=== PATIENT | female | born 1980 | race Caucasian/White ===

== ENCOUNTER 2017-08-28 11:45 | Emergency (ER) | payer OTHER ==
[~2017-08-28] VITALS: Ht 160 cm; Wt 91.6 kg
[~2017-08-28 11:45] MED LIST: FLOMAX PO; FLOMAX0.4 MG PO; HYDROCODONE-APA1 TA1 PO; NOHOMEMEDICATIONS; NORCO 5-325 TA1 EACH PO; ZOFRAN 4 MG ORAL4 M1 DIS
[2017-08-28 12:27] LABS: ABSOLUTE LYMPHOCYTES 1.1 thou/uL (0.8-5.3); ABSOLUTE MONOCYTES 0.9 thou/uL (0.0-1.2); BASOPHILS 0.3 %; EOSINOPHILS 0.3 %; HEMATOCRIT 37.5 % (37.0-47.0); HEMOGLOBIN 12.4 gm/dL (12.0-15.0); LYMPHOCYTES 11.8 %; MCH 26.8 pg (26.0-34.0); MCHC 33.1 g/dL (28.0-37.0); MONOCYTES 9.6 %; MPV 8.6 fl. (7.2-11.1); NUCLEATED RBCS 0 /100WBC; PLATELET COUNT* 280 thou/uL (150-400); RBC 4.63 mil/uL (4.20-5.00); RDW-CV 13.7 % (10.5-14.5)
[2017-08-28 12:39] LABS: CALCIUM 8.7 mg/dL (8.5-10.1); CREATININE 0.8 mg/dL (0.6-1.3); POTASSIUM 3.2 mmol/L (3.5-5.1)
[2017-08-28 12:44] LABS: URINE BLOOD 3+ (Negative); URINE COLOR YELLOW; URINE GLUCOSE-RANDOM NEGATIVE (Negative); URINE KETONES 1+ (Negative); URINE LEUKOCYTES 1+ (Negative); URINE NITRITE NEGATIVE (Negative); URINE PROTEIN 1+ (Negative); URINE SPECIFIC GRAVITY >= 1.030 (1.005-1.030)
[2017-08-28 12:44] LABS: ALBUMIN 3.4 g/dL (3.4-5.0); TOTAL BILIRUBIN 0.4 mg/dL (<0.1-1.0); TOTAL PROTEIN 7.9 g/dL (6.4-8.2)
[2017-08-28 12:46] LABS: ICTOTEST (BILI CONFIRMATORY) Negative (Negative); URINE BILIRUBIN 1+ (Negative); URINE CLARITY HAZY
[2017-08-28 12:55] LABS: SQUAMOUS >10 Many /LPF (0-3)
[2017-08-28 12:56] LABS: CASTS None Seen /LPF (None Seen); CRYSTALS None Seen /LPF (None Seen); MUCUS 0-3 Light strn/LPF (None Seen); URINE RBC >20 Many /HPF (0-2); URINE WBC 6-15 Few /HPF (0-5)
[2017-08-28] MEDS ORDERED: ZOFRAN ODT4 MG PO (13:27)
[2017-08-28] MEDS ORDERED: BACTRIM DS TAB1 EACH PO (13:27)
[2017-08-28 13:59] VITALS: BP 114/82
== END 2017-08-28 14:00 | disposition home or self-care (01) ==
LOC: M.ERS 11:45
PROVIDERS: Nurse Practitioner Psychiatric/Mental Health
DX: N30.01 Acute cystitis with hematuria (principal); R10.30 Lower abdominal pain, unspecified; R11.0 Nausea; Z88.0 Allergy status to penicillin

== ENCOUNTER 2019-03-05 16:01 | Emergency (ER) | payer OTHER ==
[~2019-03-05] VITALS: Ht 157.5 cm; Wt 93.0 kg
[~2019-03-05 16:01] MED LIST changes: +BACTRIM DS TAB1 EACH PO; +ZOFRAN ODT4 MG PO
[2019-03-05 16:55] LABS: URINE BILIRUBIN NEGATIVE (Negative); URINE BLOOD NEGATIVE (Negative); URINE CLARITY CLEAR; URINE COLOR YELLOW; URINE GLUCOSE-RANDOM NEGATIVE (Negative); URINE KETONES NEGATIVE (Negative); URINE LEUKOCYTES-REFLEX NEGATIVE (Negative); URINE NITRITE-REFLEX NEGATIVE (Negative); URINE PROTEIN NEGATIVE (Negative); URINE SPECIFIC GRAVITY 1.015 (1.005-1.030); URINE UROBILINOGEN 0.2 E.U./dl (0.2-1.0)
[2019-03-05 17:09] LABS: ABSOLUTE BASOPHILS 0.1 thou/uL (0.0-0.2); ABSOLUTE LYMPHOCYTES 0.8 thou/uL (0.8-5.3); ABSOLUTE MONOCYTES 0.3 thou/uL (0.0-1.2); ABSOLUTE NEUTROPHILS 3.7 thou/uL (1.6-8.1); BASOPHILS 1.9 %; EOSINOPHILS 0.6 %; HEMATOCRIT 34.2 % (37.0-47.0); HEMOGLOBIN 11.1 gm/dL (12.0-15.0); LYMPHOCYTES 16.5 %; MCH 25.4 pg (26.0-34.0); MCHC 32.4 g/dL (28.0-37.0); MCV 78.3 fL (80.0-100.0); MONOCYTES 5.8 %; MPV 8.3 fl. (7.2-11.1); NUCLEATED RBCS 0 /100WBC; PLATELET COUNT* 364 thou/uL (150-400); POLYS 75.2 %; RBC 4.37 mil/uL (4.20-5.00); RDW-CV 15.4 % (10.5-14.5); WBC 4.9 thou/uL (4.0-11.0)
[2019-03-05 17:19] LABS: CREATININE 0.7 mg/dL (0.6-1.3)
[2019-03-05 17:24] LABS: ALBUMIN 3.7 g/dL (3.4-5.0); TOTAL BILIRUBIN 0.4 mg/dL (<0.1-1.0); TOTAL PROTEIN 7.9 g/dL (6.4-8.2)
[2019-03-05] MEDS ORDERED: MECLIZINE HCL12.5 MG PO (20:29)
[2019-03-05] MEDS ORDERED: ZOFRAN4 MG PO (20:30)
[2019-03-05 20:46] VITALS: BP 108/69
--- NOTE | 2019-03-06 20:08 | EKG ---
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 : 1980 Requested By: Madhuri Anderson Order Number: [id number] MD: Gal Dash Measurements Intervals [place] Rate: 63 P: 46 NM: 144 QRS: 52 QRSD: 87 T: 45 QT: 406 QTc: 416 Interpretive Statements Sinus rhythm Abnormal R-wave progression, early transition Baseline wander in lead(s) V5,V6 No previous ECG available for comparison Electronically Signed On 03-06-2019 20:08:01 CDT by Gal Dash [email or web address] <ELECTRONICALLY SIGNED> By: Nunu Dash MD, [facility] 03/06/192007 44 Nunu Dash MD, [facility] /EPI
== END 2019-03-05 20:46 | disposition home or self-care (01) ==
LOC: M.ERS 16:01
PROVIDERS: Nurse Practitioner Family
DX: R42 Dizziness and giddiness (principal); Z88.0 Allergy status to penicillin; Z87.442 Personal history of urinary calculi

== ENCOUNTER 2019-06-16 12:57 | Emergency (ER) | payer BC ==
[~2019-06-16] VITALS: Ht 157.5 cm; Wt 94.3 kg
[~2019-06-16 12:57] MED LIST changes: +MECLIZINE HCL12.5 MG PO; +ZOFRAN4 MG PO
[2019-06-16 13:30] LABS: ABSOLUTE BASOPHILS 0.1 thou/uL (0.0-0.2); ABSOLUTE EOSINOPHILS 0.1 thou/uL (0.0-0.7); ABSOLUTE LYMPHOCYTES 1.3 thou/uL (0.8-5.3); ABSOLUTE MONOCYTES 0.6 thou/uL (0.0-1.2); BASOPHILS 0.8 %; EOSINOPHILS 1.1 %; HEMATOCRIT 34.4 % (37.0-47.0); HEMOGLOBIN 11.3 gm/dL (12.0-15.0); MCH 24.9 pg (26.0-34.0); MCHC 32.8 g/dL (28.0-37.0); MCV 75.8 fL (80.0-100.0); MONOCYTES 8.7 %; MPV 9.1 fl. (7.2-11.1); NUCLEATED RBCS 0 /100WBC; PLATELET COUNT* 400 thou/uL (150-400); POLYS 70.4 %; RBC 4.54 mil/uL (4.20-5.00); RDW-CV 14.9 % (10.5-14.5); WBC 7.1 thou/uL (4.0-11.0)
[2019-06-16 13:38] LABS: CALCIUM 8.4 mg/dL (8.5-10.1); CREATININE 0.8 mg/dL (0.6-1.3); POTASSIUM 3.7 mmol/L (3.5-5.1)
[2019-06-16 13:45] LABS: ALBUMIN 3.5 g/dL (3.4-5.0); TOTAL BILIRUBIN 0.2 mg/dL (<0.1-1.0); TOTAL PROTEIN 7.7 g/dL (6.4-8.2)
[2019-06-16 14:10] LABS: URINE BILIRUBIN NEGATIVE (Negative); URINE BLOOD 2+ (Negative); URINE CLARITY CLEAR; URINE COLOR YELLOW; URINE GLUCOSE-RANDOM NEGATIVE (Negative); URINE KETONES NEGATIVE (Negative); URINE LEUKOCYTES-REFLEX NEGATIVE (Negative); URINE NITRITE-REFLEX NEGATIVE (Negative); URINE PROTEIN TRACE (Negative); URINE SPECIFIC GRAVITY 1.025 (1.005-1.030); URINE UROBILINOGEN 0.2 E.U./dl (0.2-1.0)
[2019-06-16] MEDS ORDERED: TYLENOL WITH CO1 TA1 PO (14:52)
[2019-06-16] MEDS ORDERED: ONDANSETRON ODT4 MG PO (14:52)
[2019-06-16 15:08] VITALS: BP 145/80
[2019-06-16 15:14] LABS: AMORPHOUS URATES Many /LPF (None Seen); BACTERIA-REFLEX 1-9 Few /HPF (None Seen); CASTS None Seen /LPF (None Seen); MUCUS 0-3 Light strn/LPF (None Seen); SQUAMOUS 0-3 Few /LPF (0-3); URINE RBC 3-10 Few /HPF (0-2); URINE WBC-REFLEX 0-5 Rare /HPF (0-5)
[2019-06-16 15:25] LABS: CRYSTALS None Seen /LPF (None Seen)
== END 2019-06-16 15:23 | disposition home or self-care (01) ==
LOC: M.ERS 12:57
PROVIDERS: Physician Assistant
DX: R11.2 Nausea with vomiting, unspecified (principal); R19.7 Diarrhea, unspecified; Z88.0 Allergy status to penicillin; Z87.442 Personal history of urinary calculi

== ENCOUNTER 2019-09-07 07:10 | Emergency (ER) | payer OTHER ==
[~2019-09-07] VITALS: Ht 162.6 cm; Wt 91.2 kg
[~2019-09-07 07:10] MED LIST changes: +ONDANSETRON ODT4 MG PO; +TYLENOL WITH CO1 TA1 PO
[2019-09-07 07:29] LABS: INFLUENZA A ANTIGEN Positive (Negative); INFLUENZA B ANTIGEN Negative (Negative)
[2019-09-07] MEDS ORDERED: ZOFRAN ODT4 MG DISSOLVE (07:47)
[2019-09-07] MEDS ORDERED: VENTOLIN HFA 1818 GM INH (07:47)
[2019-09-07] MEDS ORDERED: TAMIFLU75 MG PO (07:47)
[2019-09-07 07:55] VITALS: BP 128/51
== END 2019-09-07 07:55 | disposition home or self-care (01) ==
LOC: M.ERS 07:10
PROVIDERS: Emergency Medicine Emergency Medical Services
DX: J10.1 Influenza due to other identified influenza virus with other respiratory manifestations (principal); Z87.442 Personal history of urinary calculi; Z88.0 Allergy status to penicillin

== ENCOUNTER 2020-01-06 11:19 | Emergency (ER) | payer OTHER ==
[~2020-01-06] VITALS: Ht 157.5 cm; Wt 94.3 kg
[~2020-01-06 11:19] MED LIST changes: +TAMIFLU75 MG PO; +VENTOLIN HFA 1818 GM INH; +ZOFRAN ODT4 MG DISSOLVE
[2020-01-06 12:10] LABS: URINE BILIRUBIN NEGATIVE (Negative); URINE BLOOD 1+ (Negative); URINE CLARITY CLEAR; URINE COLOR YELLOW; URINE GLUCOSE-RANDOM NEGATIVE (Negative); URINE KETONES NEGATIVE (Negative); URINE LEUKOCYTES-REFLEX NEGATIVE (Negative); URINE NITRITE-REFLEX NEGATIVE (Negative); URINE PROTEIN NEGATIVE (Negative); URINE SPECIFIC GRAVITY >= 1.030 (1.005-1.030); URINE UROBILINOGEN 0.2 E.U./dl (0.2-1.0)
[2020-01-06 12:18] LABS: BACTERIA-REFLEX 1-9 Few /HPF (None Seen); CASTS None Seen /LPF (None Seen); CRYSTALS None Seen /LPF (None Seen); MUCUS 4-6 Moderate strn/LPF (None Seen); SQUAMOUS 4-10 Moderate /LPF (0-3); URINE RBC 3-10 Few /HPF (0-2); URINE WBC-REFLEX 0-5 Rare /HPF (0-5)
[2020-01-06 12:32] LABS: ABSOLUTE BASOPHILS 0.1 thou/uL (0.0-0.2); ABSOLUTE EOSINOPHILS 0.1 thou/uL (0.0-0.7); ABSOLUTE LYMPHOCYTES 1.4 thou/uL (0.8-5.3); ABSOLUTE MONOCYTES 0.4 thou/uL (0.0-1.2); ABSOLUTE NEUTROPHILS 3.9 thou/uL (1.6-8.1); BASOPHILS 2.4 %; HEMATOCRIT 33.4 % (37.0-47.0); HEMOGLOBIN 10.7 gm/dL (12.0-15.0); LYMPHOCYTES 23.8 %; MCH 23.5 pg (26.0-34.0); MCV 73.5 fL (80.0-100.0); MONOCYTES 6.1 %; MPV 8.8 fl. (7.2-11.1); NUCLEATED RBCS 0 /100WBC; PLATELET COUNT* 405 thou/uL (150-400); POLYS 66.7 %; RBC 4.55 mil/uL (4.20-5.00); RDW-CV 16.5 % (10.5-14.5); WBC 5.8 thou/uL (4.0-11.0)
[2020-01-06 12:42] LABS: CALCIUM 8.8 mg/dL (8.5-10.1); CREATININE 0.9 mg/dL (0.6-1.3); POTASSIUM 3.8 mmol/L (3.5-5.1)
[2020-01-06 12:46] LABS: ALBUMIN 3.6 g/dL (3.4-5.0); TOTAL BILIRUBIN 0.4 mg/dL (<0.1-1.0); TOTAL PROTEIN 8.3 g/dL (6.4-8.2)
[2020-01-06] MEDS ORDERED: ONDANSETRON HCL4 M2 PO (14:10)
[2020-01-06 14:22] VITALS: BP 118/54
--- NOTE | 2020-01-07 08:59 | EKG ---
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1980 Requested By: Paty Morales Order Number: [id number] MD: Ghulam Zacarias Measurements Intervals [place] Rate: 59 P: 47 [place]: 140 QRS: 59 QRSD: 86 T: 47 QT: 406 QTc: 403 Interpretive Statements Sinus rhythm Compared to ECG 03/05/2019 16:45:52 No significant changes Electronically Signed On 01-07-2020 8:58:19 CDT by Ghulam Zacarias [email or web address] <ELECTRONICALLY SIGNED> By: Ghulam Zacarias MD, [facility] 01/07/20 0858 1213 [facility]3 Ghulam Zacarias MD, [facility] /EPI
== END 2020-01-06 14:23 | disposition home or self-care (01) ==
LOC: M.ERS 11:19
PROVIDERS: Nurse Practitioner Family
DX: R11.2 Nausea with vomiting, unspecified (principal); R19.7 Diarrhea, unspecified; Z87.442 Personal history of urinary calculi; Z88.0 Allergy status to penicillin; Z88.6 Allergy status to analgesic agent

== ENCOUNTER 2020-05-16 20:05 | Emergency (ER) | payer OTHER ==
[~2020-05-16] VITALS: Ht 157.5 cm; Wt 97.5 kg
[~2020-05-16 20:05] MED LIST changes: +ONDANSETRON HCL4 M2 PO
[2020-05-16] MEDS ORDERED: IRON240 M1 PO (20:20)
[2020-05-16 20:47] LABS: URINE BILIRUBIN NEGATIVE (Negative); URINE BLOOD 2+ (Negative); URINE CLARITY CLEAR; URINE COLOR YELLOW; URINE GLUCOSE-RANDOM NEGATIVE (Negative); URINE KETONES NEGATIVE (Negative); URINE LEUKOCYTES-REFLEX NEGATIVE (Negative); URINE NITRITE-REFLEX NEGATIVE (Negative); URINE PROTEIN NEGATIVE (Negative); URINE SPECIFIC GRAVITY >= 1.030 (1.005-1.030); URINE UROBILINOGEN 0.2 E.U./dl (0.2-1.0)
[2020-05-16 21:25] LABS: CASTS None Seen /LPF (None Seen); MUCUS 0-3 Light strn/LPF (None Seen); SQUAMOUS >10 Many /LPF (0-3)
[2020-05-16 21:26] LABS: CRYSTALS None Seen /LPF (None Seen); URINE RBC 3-10 Few /HPF (0-2); URINE WBC-REFLEX 0-5 Rare /HPF (0-5)
[2020-05-16 22:36] LABS: ABSOLUTE BASOPHILS 0.1 thou/uL (0.0-0.2); ABSOLUTE LYMPHOCYTES 1.4 thou/uL (0.8-5.3); ABSOLUTE MONOCYTES 0.5 thou/uL (0.0-1.2); ABSOLUTE NEUTROPHILS 8.3 thou/uL (1.6-8.1); BASOPHILS 0.9 %; EOSINOPHILS 0.3 %; HEMATOCRIT 39.8 % (37.0-47.0); HEMOGLOBIN 13.1 gm/dL (12.0-15.0); LYMPHOCYTES 13.7 %; MCH 26.9 pg (26.0-34.0); MCV 81.7 fL (80.0-100.0); MONOCYTES 5.1 %; MPV 8.6 fl. (7.2-11.1); NUCLEATED RBCS 0 /100WBC; PLATELET COUNT* 361 thou/uL (150-400); RBC 4.87 mil/uL (4.20-5.00); RDW-CV 20.3 % (10.5-14.5); WBC 10.3 thou/uL (4.0-11.0)
[2020-05-16 22:48] LABS: CALCIUM 9.4 mg/dL (8.5-10.1); CREATININE 0.9 mg/dL (0.6-1.3); POTASSIUM 3.9 mmol/L (3.5-5.1)
[2020-05-16 22:59] LABS: ALBUMIN 3.8 g/dL (3.4-5.0); TOTAL BILIRUBIN 0.4 mg/dL (<0.1-1.0); TOTAL PROTEIN 8.2 g/dL (6.4-8.2)
[2020-05-17 00:10] LABS: ANISOCYTOSIS 2+
[2020-05-17 00:11] LABS: LARGE PLATELETS OCCASIONAL; PLATELET ESTIMATE ADEQUATE; POLYCHROMASIA 1+
[2020-05-17] MEDS ORDERED: BENTYL 20 MG TA20 M1 PO (00:34)
[2020-05-17] MEDS ORDERED: ZOFRAN ODT4 MG DISSOLVE (00:34)
[2020-05-17 01:02] VITALS: BP 119/63
--- NOTE | 2020-05-17 09:37 | EKG ---
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
== END 2020-05-17 01:04 | disposition home or self-care (01) ==
LOC: M.ERS 20:05
PROVIDERS: Emergency Medicine Emergency Medical Services; Nurse Practitioner Family
DX: D28.2 Benign neoplasm of uterine tubes and ligaments (principal); Z20.828 Contact with and (suspected) exposure to other viral communicable diseases; E03.9 Hypothyroidism, unspecified; Z88.0 Allergy status to penicillin; Z88.6 Allergy status to analgesic agent; Z87.442 Personal history of urinary calculi; Z86.2 Personal history of diseases of the blood and blood-forming organs and certain disorders involving the immune mechanism

== ENCOUNTER 2020-10-25 21:52 | Emergency (ER) | payer OTHER ==
[~2020-10-25] VITALS: Ht 157.5 cm; Wt 98.9 kg
[~2020-10-25 21:52] MED LIST changes: +BENTYL 20 MG TA20 M1 PO; +IRON240 M1 PO
[2020-10-25 22:30] LABS: ABSOLUTE BASOPHILS 0.1 thou/uL (0.0-0.2); ABSOLUTE EOSINOPHILS 0.1 thou/uL (0.0-0.7); ABSOLUTE LYMPHOCYTES 2.2 thou/uL (0.8-5.3); ABSOLUTE NEUTROPHILS 6.2 thou/uL (1.6-8.1); BASOPHILS 1.3 %; EOSINOPHILS 0.7 %; HEMATOCRIT 36.7 % (37.0-47.0); HEMOGLOBIN 11.9 gm/dL (12.0-15.0); MCHC 32.5 g/dL (28.0-37.0); MCV 83.2 fL (80.0-100.0); MONOCYTES 10.2 %; MPV 8.9 fl. (7.2-11.1); NUCLEATED RBCS 0 /100WBC; PLATELET COUNT* 359 thou/uL (150-400); POLYS 64.8 %; RBC 4.41 mil/uL (4.20-5.00); RDW-CV 14.3 % (10.5-14.5); WBC 9.5 thou/uL (4.0-11.0)
[2020-10-25 22:36] LABS: CALCIUM 9.1 mg/dL (8.5-10.1); CREATININE 0.9 mg/dL (0.6-1.3); POTASSIUM 3.6 mmol/L (3.5-5.1)
[2020-10-25 22:40] LABS: ALBUMIN 3.7 g/dL (3.4-5.0); TOTAL BILIRUBIN 0.4 mg/dL (<0.1-1.0); TOTAL PROTEIN 7.9 g/dL (6.4-8.2)
[2020-10-25] MEDS ORDERED: ROXICODONE5 M2 PO (23:18)
[2020-10-25] MEDS ORDERED: FLEXERIL PO (23:18)
[2020-10-25 23:21] VITALS: BP 120/53
--- NOTE | 2020-10-26 11:14 | EKG ---
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 Office: [place] : 1980 Requested By: Emmy Rodrigez Order Number: [id number] MD: Vinod Sethi Measurements Intervals [place] Rate: 75 P: 59 [place]: 146 QRS: 66 QRSD: 92 T: 37 QT: 344 QTc: 385 Interpretive Statements Sinus arrhythmia Minimal ST depression, inferior leads Baseline wander in lead(s) III,aVL,aVF,V2,V5,V6 Compared to ECG 05/16/2020 22:30:57 Sinus rhythm no longer present Electronically Signed On 10-26-2020 11:13:51 CDT by Vinod Sethi [email or web address] <ELECTRONICALLY SIGNED> By: Vinod Sethi MD, FACC 10/26/20 1113 99 99 Vinod Sethi MD, FAC /EPI
== END 2020-10-25 23:21 | disposition home or self-care (01) ==
LOC: M.ERS 21:52
PROVIDERS: Emergency Medicine
DX: R07.81 Pleurodynia (principal); Z88.6 Allergy status to analgesic agent; Z87.442 Personal history of urinary calculi; Z86.2 Personal history of diseases of the blood and blood-forming organs and certain disorders involving the immune mechanism

== ENCOUNTER 2021-07-18 11:36 | Emergency (ER) | payer OTHER ==
[~2021-07-18] VITALS: Ht 157.5 cm; Wt 94.8 kg
[~2021-07-18 11:36] MED LIST changes: +FLEXERIL PO; +ROXICODONE5 M2 PO
[2021-07-18] MEDS ORDERED: FLEXERIL PO (12:57)
[2021-07-18] MEDS ORDERED: ZOFRAN ODT4 MG PO (12:57)
[2021-07-18 13:14] VITALS: BP 107/73
== END 2021-07-18 13:15 | disposition home or self-care (01) ==
LOC: M.ERS 11:36
DX: B34.9 Viral infection, unspecified (principal); Z87.442 Personal history of urinary calculi; Z79.899 Other long term (current) drug therapy; Z88.0 Allergy status to penicillin; Z88.6 Allergy status to analgesic agent